=== PATIENT | male | born 1950 | race Caucasian/White ===

== ENCOUNTER 2017-06-05 18:21 | Emergency (ER) | payer MEDICARE, BC ==
[~2017-06-05] VITALS: Ht 167.6 cm; Wt 69.8 kg
[~2017-06-05 18:21] MED LIST: AIRBORNE LOZEN1 EACH MM; ASPIRIN EC81 MG PO; MEDROL4 M1 PO; MUCINEX600 MG PO; MULTIVITAMINS1 EAC7 PO; ONDANSETRON ODT4 MG SL; PROVENTIL HFA6.7 GM INH; ZITHROMAX250 MG PO
[2017-06-05] MEDS ORDERED: MOBIC7.5 MG PO (18:34)
[2017-06-05] MEDS ORDERED: PROVENTIL HFA6.7 GM INH (19:50)
[2017-06-05] MEDS ORDERED: MEDROL4 M1 PO (19:50)
[2017-06-05] MEDS ORDERED: ZITHROMAX250 MG PO (19:50)
[2017-06-05] MEDS ORDERED: LEVAQUIN750 MG PO (20:21)
--- NOTE | 2017-06-06 20:22 | EKG ---
[facility] [address] [facility] [place] [address] Signed Sinus tachycardia Incomplete right bundle branch block Borderline ECG No previous ECGs available Confirmed by JANIYA BRAGG MD ([id number]) on 06/06/2017 8:21:50 PM Electronically Signed By: JANIYA BRAGG MD 06/06/172021 PATIENT NAME: CAPRIKUN Electrocardiogram DATE OF : 46 PHYSICIAN: JANIYA BRAGG MD REPORT #: [id number] REPORT IS CONFIDENTIAL AND NOT TO BE RELEASED WITHOUT AUTHORIZATION
== END 2017-06-05 20:30 | disposition home or self-care (01) ==
LOC: ED 18:21
DX: J44.0 Chronic obstructive pulmonary disease with (acute) lower respiratory infection (principal); J18.9 Pneumonia, unspecified organism; F17.200 Nicotine dependence, unspecified, uncomplicated; Z98.890 Other specified postprocedural states; Z88.0 Allergy status to penicillin; Z88.4 Allergy status to anesthetic agent; Z79.899 Other long term (current) drug therapy; Z79.82 Long term (current) use of aspirin
CPT/HCPCS: 71020; 80053; 83735; 84484; 85025; 93005; 93010; 99284

== ENCOUNTER 2017-09-04 08:19 | Emergency (ER) | payer MEDICARE, BC ==
[~2017-09-04] VITALS: Ht 167.6 cm; Wt 69.8 kg
[~2017-09-04 08:19] MED LIST changes: +LEVAQUIN750 MG PO; +MOBIC7.5 MG PO
[2017-09-04] MEDS ORDERED: AZITHROMYCIN250 MG PO (11:00)
[2017-09-04] MEDS ORDERED: PROVENTIL HFA6.7 GM INH (11:00)
== END 2017-09-04 11:17 | disposition home or self-care (01) ==
LOC: ED 08:19
DX: J40 Bronchitis, not specified as acute or chronic (principal); F17.200 Nicotine dependence, unspecified, uncomplicated; Z88.0 Allergy status to penicillin; Z88.4 Allergy status to anesthetic agent; Z79.899 Other long term (current) drug therapy; Z79.82 Long term (current) use of aspirin
CPT/HCPCS: 71045; 87502; 94640; 99283

== ENCOUNTER 2022-06-20 07:55 | Emergency (ER) | payer MEDICARE, BC ==
[~2022-06-20] VITALS: Ht 167.6 cm; Wt 60.5 kg
[~2022-06-20 07:55] MED LIST changes: +AZITHROMYCIN250 MG PO
[2022-06-20] MEDS ORDERED: DONEPEZIL HCL5 MG PO (08:12)
[2022-06-20] MEDS ORDERED: MELOXICAM15 MG PO (08:12)
[2022-06-20] MEDS ORDERED: ANORO ELLIPTA1 EACH INH (08:13)
[2022-06-20] MEDS ORDERED: CITALOPRAM HBR20 MG PO (08:13)
[2022-06-20] MEDS ORDERED: PREDNISONE20 MG PO (10:58)
== END 2022-06-20 11:08 | disposition home or self-care (01) ==
LOC: ED 07:55
DX: M54.50 Low back pain, unspecified (principal); J44.9 Chronic obstructive pulmonary disease, unspecified; F17.200 Nicotine dependence, unspecified, uncomplicated; Z88.0 Allergy status to penicillin; Z79.899 Other long term (current) drug therapy; Z79.82 Long term (current) use of aspirin
CPT/HCPCS: 36415; 74177; 80053; 81001; 83690; 85025; 99284-25; Q9967

== ENCOUNTER 2023-07-10 09:57 | Emergency (ER) | payer MEDICARE, BC ==
[~2023-07-10 09:57] MED LIST changes: +ANORO ELLIPTA1 EACH INH; +CITALOPRAM HBR20 MG PO; +DONEPEZIL HCL5 MG PO; +MELOXICAM15 MG PO; +PREDNISONE20 MG PO
[2023-07-10 11:58] LABS: BILIRUBIN, URINE NEGATIVE (negative); BLOOD/HGB, URINE NEGATIVE (Negative); KETONE, URINE NEGATIVE (Negative); LEUK ESTERASE, URINE NEGATIVE (negative); NITRITE, URINE NEGATIVE (negative); PH, URINE 7.5 (5-7)
[2023-07-10 13:35] VITALS: BP 145/69
== END 2023-07-10 13:31 | disposition home or self-care (01) ==
LOC: ED 09:57
PROVIDERS: Emergency Medicine
DX: M25.552 Pain in left hip (principal); K40.90 Unilateral inguinal hernia, without obstruction or gangrene, not specified as recurrent; J44.9 Chronic obstructive pulmonary disease, unspecified; F03.90 Unspecified dementia, unspecified severity, without behavioral disturbance, psychotic disturbance, mood disturbance, and anxiety; F17.200 Nicotine dependence, unspecified, uncomplicated; Z88.0 Allergy status to penicillin; Z88.4 Allergy status to anesthetic agent; Z79.899 Other long term (current) drug therapy; Z79.82 Long term (current) use of aspirin
CPT/HCPCS: 72192; 81003; 99284-25

== ENCOUNTER 2023-07-29 09:41 | Emergency (ER) | payer MEDICARE, BC ==
[~2023-07-29] VITALS: Ht 167.6 cm; Wt 58.0 kg
--- OUTSIDE RECORDS SUMMARY | 2023-07-29 09:49 | XMS ---
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 Kylie VISIT COUNT (12 MO.) 4 [facility] TOTAL 4 NOTE: Visits indicate total known visits. ED/UCC VISIT TRACKING (12 MO.) 07/29/2023 09:41 [facility] TYPE: Emergency COMPLAINT: - WEAKNESS, NO APPETITE, STANDS/SHAKES 07/10/2023 09:58 [facility] [place] TYPE: Emergency COMPLAINT: - GROIN PAIN DIAGNOSES: - Allergy status to anesthetic agent - Allergy status to penicillin - Chronic obstructive pulmonary disease, unspecified - Left lower quadrant pain - care home (current) use of aspirin - Nicotine dependence, unspecified, uncomplicated - Other correction (current) drug therapy - Pain in left hip - Unilateral inguinal hernia, without obstruction or gangrene, not specified as recurrent - Unspecified dementia, unspecified severity, without behavioral disturbance, psychotic disturbance, mood disturbance, and anxiety 02/20/2023 14:14 [facility] [place] TYPE: Emergency COMPLAINT: - WEAKNESS, BODY ACHES DIAGNOSES: - Abnormal weight loss - Allergy status to narcotic agent - Allergy status to penicillin - Chronic obstructive pulmonary disease, unspecified - care home (current) use of aspirin - Nicotine dependence, unspecified, uncomplicated - Other terminal operator (current) drug therapy - Weakness 11/27/2022 06:[address] [facility] [place] TYPE: Emergency COMPLAINT: - WEAKNESS, L FLANK PAIN DIAGNOSES: - Allergy status to narcotic agent - Allergy status to penicillin - Chronic obstructive pulmonary disease, unspecified - care home (current) use of aspirin - Nicotine dependence, unspecified, uncomplicated - Other correction (current) drug therapy - Unspecified dementia, unspecified severity, without behavioral disturbance, psychotic disturbance, mood disturbance, and anxiety - Weakness INPATIENT VISIT TRACKING (12 MO.) No inpatient visits to display in this time frame [email or web address]
[2023-07-29 11:21] LABS: BASOPHILS 0.5 % (0-2); EOSINOPHILS 1.1 % (0-6); HEMATOCRIT 46.8 % (35.0-50.0); HEMOGLOBIN 15.6 g/dL (12.0-18.0); MCH 29.8 (27-36); MCHC 33.2 g/dl (30-36); MCV 89.8 fl (81-99); MONOCYTES 5.6 % (0-12); NEUTROPHILS 76.8 % (39-80); PLATELET COUNT 184 K/uL (140-440); RBC 5.21 M/ul (4.3-5.7); RDW 13.7 (10.5-15.0)
[2023-07-29 11:24] LABS: BILIRUBIN, URINE NEGATIVE (negative); BLOOD/HGB, URINE NEGATIVE (Negative); KETONE, URINE NEGATIVE (Negative); LEUK ESTERASE, URINE NEGATIVE (negative); NITRITE, URINE NEGATIVE (negative); PH, URINE 7.5 (5-7)
[2023-07-29 11:39] LABS: ALBUMIN 3.6 g/dL (3.4-5.0); ALBUMIN/GLOBULIN RATIO 1.13 (1.1-2.4); ANION GAP 14.1 (7-21); BILIRUBIN, TOTAL 0.6 ng/dL (0.2-1.0); BUN/CREATININE RATIO 11.3 (6.0-28.6); CALCIUM 10.1 mg/dL (8.5-10.1); CREATININE, SERUM 1.15 mg/dL (0.70-1.30); POTASSIUM 4.1 mmol/L (3.5-5.1); PROTEIN, TOTAL 6.8 g/dL (6.4-8.2)
[2023-07-29 12:43] VITALS: BP 119/72
== END 2023-07-29 12:44 | disposition home or self-care (01) ==
LOC: ED 09:41
PROVIDERS: Emergency Medicine
DX: M54.16 Radiculopathy, lumbar region (principal); M16.0 Bilateral primary osteoarthritis of hip; M48.061 Spinal stenosis, lumbar region without neurogenic claudication; J44.9 Chronic obstructive pulmonary disease, unspecified; F17.200 Nicotine dependence, unspecified, uncomplicated; Z88.0 Allergy status to penicillin; Z88.8 Allergy status to other drugs, medicaments and biological substances; Z79.899 Other long term (current) drug therapy; Z79.82 Long term (current) use of aspirin
CPT/HCPCS: 36415; 71046; 80053; 81003; 85025; 99283-25